=== PATIENT | female | born 1960 | race Caucasian/White ===

== ENCOUNTER → 2019-04-01 13:08 | Outpatient (CLI) | payer OTHER, SELFPAY ==
--- NOTE | ~2019-04-01 | XR_ITS ---
EXAMINATION: XR chest 2V EXAM DATE: 04/01/2019 13:21 INDICATION: Cough. TECHNIQUE: Frontal and lateral projections of the chest obtained and reviewed. There is no prior aaron dy for comparison. FINDINGS: There is left clavicular plate with supporting screws. The lungs are clear. There are no pleural effusions. The cardiomediastinal silhouette is within normal limits. There is no pneumothor ax suspected. The bones and soft tissues are unremarkable. IMPRESSION: No acute cardiopulmonary findings. Reviewed, dictated and finalized at location B. TOR DRIVER TEAMSTER
== END ==
PROVIDERS: PCP Internal Medicine; Visit Provider Internal Medicine
DX: R05 Cough (principal)
CPT/HCPCS: 71046

== ENCOUNTER → 2021-01-24 14:22 | Outpatient (CLI) | payer BC, SELFPAY ==
--- NOTE | ~2021-01-24 | MM_ITS ---
EXAMINATION: MM screening [facility] BI w kasie HISTORY: Screening TECHNIQUE: Craniocaudal and mediolateral oblique 3-D tomosynthesis images were obtained and synthetic 2-D images were generated. CAD analysis was submitted and interpreted. COMPARISON: Comparison to multiple prior studies sequentially, with oldest reviewed study dated 04/2012. BREAST PARENCHYMAL COMPOSITION: Breast composed of scattered areas of fibroglandular density. FINDINGS: There is no evidence of suspicious mass, calcification, or architectural distortion to sugg est malignancy in either breast. There has been no suspicious interval change. IMPRESSION: 1. No mammographic evidence of malignancy. 2. Recommend routine screening mammography in one year. BI-RADS Category 1: Negative Reviewed, dictated and finalized at location A.
== END ==
PROVIDERS: PCP Internal Medicine; Visit Provider Internal Medicine
DX: Z12.31 Encounter for screening mammogram for malignant neoplasm of breast (principal)
CPT/HCPCS: 77063; 77067

== ENCOUNTER 2021-02-21 15:13 | Outpatient (CLI) | payer BC, SELFPAY ==
[2021-02-21 16:46] LABS: SARS-CoV-2 RNA PCR Positive (Negative)
== END 2021-02-21 15:14 | disposition home or self-care (01) ==
LOC: CHSLAB 15:14
PROVIDERS: PCP Internal Medicine; Visit Provider Internal Medicine
DX: R68.89 Other general symptoms and signs (principal); U07.1 COVID-19
CPT/HCPCS: C9803; U0003; U0005

== ENCOUNTER 2022-04-18 10:29 | Outpatient (CLI) | payer BC, SELFPAY ==
[2022-04-18 19:52] LABS: Alanine Aminotransferase 20 U/L (6-35); Albumin Level 4.2 g/dL (3.5-5.1); Alkaline Phosphatase 106 U/L (38-126); Anion Gap 5 mmol/L (8-16); Aspartate Amino Transferase 29 U/L (14-36); Bilirubin,Total 1.4 mg/dL (0.2-1.3); Blood Urea Nitrogen 11 mg/dL (7-17); Calcium 8.6 mg/dL (8.4-10.2); Carbon Dioxide 31 mmol/L (22-30); Chloride 101 mmol/L (98-107); Cholesterol 158 mg/dL (0-200); Estimated Glomerular Filt Rate > 60; Glucose 120 mg/dL (65-110); HDL Direct 43 mg/dL; Potassium 4.5 mmol/L (3.4-5.0); Sodium 137 mmol/L (137-145); Triglycerides 177 mg/dL (<150)
[2022-04-18 20:03] LABS: LDL Cholesterol Direct 74 mg/dL
[2022-04-18 20:16] LABS: Creatinine Urine 247.7 mg/dL
[2022-04-18 20:20] LABS: MALB Creatinine Ratio 4.4 mg/g (0-30)
== END 2022-04-18 10:30 | disposition home or self-care (01) ==
LOC: ANHGOSHLAB 10:30
PROVIDERS: PCP Family Medicine; Visit Provider Family Medicine
DX: Z13.228 Encounter for screening for other metabolic disorders (principal); E78.5 Hyperlipidemia, unspecified; E11.9 Type 2 diabetes mellitus without complications; R53.83 Other fatigue
CPT/HCPCS: 36415; 80053; 80061; 82043; 83036; 84443

== ENCOUNTER → 2023-04-14 13:14 | Outpatient (CLI) | payer BC, SELFPAY ==
--- NOTE | ~2023-04-14 | MM_ITS ---
EXAMINATION: MM screening [facility] BI w kasie HISTORY: Screening mammogram, family history of breast cancer in her mother. TECHNIQUE: Craniocaudal and mediolateral oblique 3-D tomosynthesis images were obtained and synthetic 2-D images were generated. CAD analysis was submitted and interpreted. COMPARISON: 01/24/2021, 11/14/2016, 10/25/2016, 09/21/2012 BREAST PARENCHYMAL COMPOSITION: There are scattered areas of fibroglandular density. FINDINGS: Small, stable bilateral breast masses in the outer breasts are considered benign given the lack of interval change. No suspicious mass, calcification, or architectural distortion are identifie d in either breast to suggest malignancy. There has been no suspicious interval change. IMPRESSION: 1. No mammographic evidence of malignancy. 2. Recommend routine screening mammography in one year. BI-RADS Category 2: Benign finding(s). Reviewed, dictated and finalized at location A. MOLDER
== END ==
PROVIDERS: PCP Family Medicine; Visit Provider Family Medicine
DX: Z12.31 Encounter for screening mammogram for malignant neoplasm of breast (principal)
CPT/HCPCS: 77063; 77067

== ENCOUNTER 2024-01-12 15:46 | Outpatient (CLI) | payer BC, SELFPAY ==
[2024-01-12 18:50] LABS: Basophils Percent Auto 0.3 % (0.2-1.2); Eosinophils Absolute Auto 0.2 K/mm3 (0-0.3); Eosinophils Percent Auto 1.9 % (0-4.4); Hematocrit 41.2 % (37.0-47.0); Hemoglobin 13.1 g/dL (12.0-15.0); Immature Granulocyte Absolute 0.05 K/mm3 (0.00-0.031); Immature Granulocyte Percent A 0.4 % (0-0.5); Immature Platelet Fraction Pct 10.5 % (0.9-11.2); Lymphocytes Absolute Auto 3.48 K/mm3 (0.9-3.2); Lymphocytes Percent Auto 27.6 % (18.3-44.2); Mean Corpuscular HGB Conc 31.8 g/dl (32-36); Mean Corpuscular Hemoglobin 30.2 pg (26-34); Mean Corpuscular Volume 94.9 fl (80-100); Mean Platelet Volume 13.2 fl (7.4-10.4); Monocytes Absolute Auto 0.7 K/mm3 (0.1-0.6); Monocytes Percent Auto 5.5 % (2.6-8.5); Neutrophils Absolute Auto 8.1 K/mm3 (1.3-6.7); Neutrophils Percent Auto 64.3 % (45.5-73.1); Platelet Count Result 179 k/mm3 (150-375); Red Blood Count 4.34 M/mm3 (4.2-5.4); Red Cell Distribution Width 13.9 % (11.5-14.5); White Blood Count 12.6 K/mm3 (4.5-10.0)
[2024-01-12 19:08] LABS: D Dimer 3.07 ug/mL (<0.48)
[2024-01-12 19:22] LABS: Alanine Aminotransferase 21 U/L (6-35); Albumin Level 4.3 g/dL (3.5-5.1); Alkaline Phosphatase 97 U/L (38-126); Anion Gap 9 mmol/L (4-12); Aspartate Amino Transferase 27 U/L (14-36); Bilirubin,Total 1.5 mg/dL (0.2-1.3); Blood Urea Nitrogen 14 mg/dL (7-17); Calcium 9.1 mg/dL (8.4-10.2); Carbon Dioxide 27 mmol/L (22-30); Chloride 103 mmol/L (98-107); Cholesterol 183 mg/dL (0-200); Estimated Glomerular Filt Rate > 60; Glucose 141 mg/dL (65-110); HDL Direct 47 mg/dL; Potassium 4.2 mmol/L (3.4-5.0); Sodium 139 mmol/L (137-145); Triglycerides 183 mg/dL (<150); Uric Acid 3.5 mg/dL (2.5-7.5)
[2024-01-12 19:29] LABS: Creatinine Urine 135.5 mg/dL
[2024-01-12 19:32] LABS: Hemoglobin A1C 8.7 % (<5.7)
[2024-01-12 19:34] LABS: MALB Creatinine Ratio 5.2 mg/g (0-30); Microalbumin Urine Random 7.1 mg/L (0-16.7)
[2024-01-12 19:42] LABS: LDL Cholesterol Direct 97 mg/dL
== END 2024-01-12 15:47 | disposition home or self-care (01) ==
LOC: ANHGOSHLAB 15:47
PROVIDERS: PCP Family Medicine; Visit Provider Family Medicine
DX: E11.9 Type 2 diabetes mellitus without complications (principal); Z13.228 Encounter for screening for other metabolic disorders; E78.5 Hyperlipidemia, unspecified; M10.9 Gout, unspecified; R53.83 Other fatigue; Z13.29 Encounter for screening for other suspected endocrine disorder; R06.00 Dyspnea, unspecified
CPT/HCPCS: 36415; 80053; 80061; 82043; 83036; 84443; 84550; 85025; 85055; 85380

== ENCOUNTER 2024-01-12 16:07 | Outpatient (CLI) | payer BC, SELFPAY ==
--- NOTE | ~2024-01-12 | XR_ITS ---
CHEST RADIOGRAPH, PA AND LATERAL CLINICAL HISTORY: sob cough for 4 months . COMPARISON: 04/01/2019 TECHNIQUE: PA and lateral views of the chest. FINDINGS The cardiomediastinal silhouette is unremarkable. The lungs are clear. Fixation hardware within the left clavicle. Remaining visualized osseous structures and soft tissues are otherwise unremarkable. IMPRESSION: No focal infiltrate or effusion. Reviewed, dictated and finalized at location A.
== END 2024-01-12 16:08 | disposition home or self-care (01) ==
LOC: GOSHIMG 16:08
PROVIDERS: PCP Family Medicine; Visit Provider Family Medicine
DX: R06.02 Shortness of breath (principal); R05.9 Cough, unspecified
CPT/HCPCS: 71046

== ENCOUNTER 2024-01-15 07:41 | Outpatient (CLI) | payer BC, SELFPAY ==
--- NOTE | ~2024-01-15 | CT_ITS ---
EXAMINATION: CTA chest PE protocol DATE: 01/15/2024 08:12 CDT INDICATION: Shortness of breath TECHNIQUE: Computed tomographic angiography (CTA) of the chest was performed with 100 mL Omnipaque-35 0 intravenous contrast. The dose-length product was 947.79 mGy-cm. Maximum intensity projection 3D-re constructions of the aorta and other arteries were constructed by the technologist on a separate work station. Automated exposure control and iterative reconstruction technique were employed. COMPARISON: Chest dated 01/12/2024 FINDINGS: Study is technically adequate without evidence for pulmonary embolism. No evidence for aort ic aneurysm or dissection. Small hiatal hernia. Enlarged right thyroid gland. No discrete mass. No th oracic lymphadenopathy. Upper abdomen is unremarkable. 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 Dependent at electasis. Elevated right diaphragm. There is scoliosis. No suspicious pulmonary nodules or masses. N o endobronchial lesions. Moderate thoracic spondylosis. IMPRESSION: 1. No acute cardiopulmonary disease. No evidence for pulmonary embolism. Reviewed, dictated and finalized at location B.
== END 2024-01-15 07:42 | disposition home or self-care (01) ==
PROVIDERS: PCP Family Medicine; Visit Provider Family Medicine
DX: R06.02 Shortness of breath (principal)
CPT/HCPCS: 71275; Q9967

== ENCOUNTER 2024-01-19 10:33 | Outpatient (CLI) | payer BC, SELFPAY ==
--- NOTE | ~2024-01-19 | US_ITS ---
EXAMINATION: US thyroid DATE: 01/19/2024 10:56 INDICATION: Disorder of thyroid TECHNIQUE: Multiple ultrasound images of the thyroid were obtained. COMPARISON: None. FINDINGS: The right thyroid lobe measures 7.0 x 2.8 x 4.6 cm. The left thyroid lobe measures 3.7 x 1.6 x 1.4 c m. 1.8 cm wider than tall solid isoechoic nodule with smooth and ill-defined margins and without ech ogenic foci (TI-RADS 3, mildly suspicious , FNA if >=2.5 cm, annual followup is >=1.5 cm) in the medi al inferior right thyroid lobe. There is a second similar-appearing 2.8 cm TI-RADS 3 nodule more late rally in the mid to inferior right thyroid. There is a 2.0 cm TI-RADS 3 nodule with similar imaging f eatures in the left thyroid lobe. There are couple subcentimeter wider than tall solid hypoechoic nod ule with ill-defined margins and without echogenic foci (TI-RADS 4, moderately suspicious , FNA if >= 1.5 cm, annual followup is >=1 cm) in the left thyroid lobe measuring 6 mm and 4 mm in maximal diamet ers. 2.1 cm predominantly isoechoic solid TI-RADS 3 nodule with small anechoic cystic regions, smooth and ill-defined margins and without echogenic foci at the thyroid isthmus. IMPRESSION: 1. Multinodular goiter. Recommend ultrasound-guided fine-needle aspiration of the largest 2.8 cm TI R ADS 3 right thyroid nodule. Reviewed, dictated and finalized at location A. IMPRESSION: 1. Multinodular goiter. Recommend ultrasound-guided fine-needle aspiration of t he largest 2.8 cm TI RADS 3 right thyroid nodule.
== END 2024-01-19 10:34 | disposition home or self-care (01) ==
LOC: MICIMG 10:33
PROVIDERS: PCP Family Medicine; Visit Provider Family Medicine
DX: E04.2 Nontoxic multinodular goiter (principal); E07.9 Disorder of thyroid, unspecified
CPT/HCPCS: 76536

== ENCOUNTER 2024-02-26 12:13 | Outpatient (CLI) | payer BC, SELFPAY ==
--- NOTE | ~2024-02-26 | US_ITS ---
EXAMINATION: US FNA w image guidance DATE: 02/26/2024 13:48 INDICATION: Nontoxic single thyroid nodule. TECHNIQUE: The procedure and its benefits and risks were discussed with the patient. Risks specifically discusse d included bleeding. The patient verbalized understanding of the risks and agreed to proceed. The nec k was prepped and draped in the usual sterile manner. 1% lidocaine was used for local anesthesia. 7 passes were made with a 25G needle into the lesion under ultrasound guidance. There were no immedia te complications. FINDINGS: Grayscale ultrasound images demonstrate needles advanced into a 2.8 cm nodule in right thyroid lobe f or biopsy. IMPRESSION: 1. Ultrasound-guided fine needle aspiration of a right thyroid nodule. Reviewed, dictated and finalized at location A. T SPRAYER
== END 2024-02-26 12:14 | disposition home or self-care (01) ==
PROVIDERS: PCP Family Medicine; Visit Provider Family Medicine
DX: D44.0 Neoplasm of uncertain behavior of thyroid gland (principal)
CPT/HCPCS: 10005; 88172; 88173; 88305

== ENCOUNTER 2024-06-15 13:57 | Outpatient (CLI) | payer BC, SELFPAY ==
--- NOTE | ~2024-06-15 | MM_ITS ---
EXAMINATION: MM screening [facility] BI w kasie HISTORY: Screening TECHNIQUE: Craniocaudal and mediolateral oblique 3-D tomosynthesis images were obtained and synthetic 2-D images were generated. CAD analysis was submitted and interpreted. COMPARISON: 04/14/2023 and dating back to 10/25/2016 BREAST PARENCHYMAL COMPOSITION: There are scattered areas of fibroglandular density. FINDINGS: Punctate calcifications detected bilaterally, stable and benign in appearance, dermal in or igin. Stable parenchymal pattern without suspicious microcalcifications, architectural distortion, discrete masses or significant asymmetry. IMPRESSION: 1. No mammographic evidence of malignancy. 2. Recommend routine screening mammography in one year. BI-RADS Category 2: Benign finding(s). Reviewed, dictated and finalized at location A.
== END 2024-06-15 13:58 | disposition home or self-care (01) ==
PROVIDERS: PCP Family Medicine; Visit Provider Family Medicine
DX: Z12.31 Encounter for screening mammogram for malignant neoplasm of breast (principal)
CPT/HCPCS: 77063; 77067

== ENCOUNTER 2024-10-05 10:35 | Outpatient (CLI) | payer MEDICARE, SELFPAY ==
--- NOTE | ~2024-10-05 | US_ITS ---
Thyroid ultrasound. Clinical History: Thyroid nodule COMPARISON: 01/19/2024 Findings: Real-time sonography of the thyroid gland was performed. The right lobe measures 7.9 x 5.0 x 5.7 cm. The left lobe measures 5.3 x 1.7 x 1.4 cm. The isthmus is 7 mm in AP diameter. There is a 2.1 x 1.3 x 1.8 cm probably solid isoechoic nodule in the isthmus with small cystic compon ents. There is a 2.8 x 1.5 x 2.2 cm mildly hypoechoic solid nodule at the right midpole anteriorly. There i s a 2.8 x 2.7 x 2.8 cm heterogeneously hypoechoic nodule at the posterior right midpole. There is a 1.7 x 1.6 x 1.4 cm peripherally solid nodule at the left midpole with small cystic compone nts. Impression: Bilateral thyroid nodules, which are overall probably similar to prior exam given differences in imag ing technique.. Reviewed, dictated and finalized at location . Impression: Bilateral thyroid nodules, which are overall probably similar to prior exam giv en differences in imaging technique..
== END 2024-10-05 10:36 | disposition home or self-care (01) ==
LOC: MICIMG 10:37
PROVIDERS: PCP Family Medicine; Visit Provider Family Medicine
DX: E04.2 Nontoxic multinodular goiter (principal)
CPT/HCPCS: 76536

== ENCOUNTER 2024-10-11 14:14 | Outpatient (CLI) | payer MEDICARE, SELFPAY ==
--- NOTE | ~2024-10-11 | XR_ITS ---
XR abdomen/kub 1V 10/11/2024 14:43 INDICATION: Dysuria. Hematuria. Bilateral flank pain. TECHNIQUE: KUB COMPARISON: None FINDINGS: Bowel gas pattern is normal. There is no evidence of free air, mass, organomegaly, ascites or obstruction. No abnormal calculi are seen. The bones appear intact. IMPRESSION: 1: No acute abdominal abnormality identified. Reviewed, dictated and finalized at location A.
== END 2024-10-11 14:15 | disposition home or self-care (01) ==
LOC: GOSHIMG 14:15
PROVIDERS: PCP Family Medicine; Visit Provider Family Medicine
DX: R30.0 Dysuria (principal); N20.0 Calculus of kidney
CPT/HCPCS: 74018

== ENCOUNTER 2024-10-11 14:46 | Outpatient (NON) | payer MEDICARE, SELFPAY | END 2024-10-11 14:47 | disposition home or self-care (01) | LOC: ANHGOSHLAB 14:47 | PROVIDERS: PCP Family Medicine; Visit Provider Family Medicine | DX: R30.0 Dysuria (principal) | CPT/HCPCS: 87086 ==

== ENCOUNTER 2024-12-20 11:22 | Outpatient (CLI) | payer MEDICARE, SELFPAY ==
[2024-12-20 13:06] LABS: Hematocrit 42.3 % (37.0-47.0); Hemoglobin 13.3 g/dL (12.0-15.0); Immature Platelet Fraction Pct 10.5 % (0.9-11.2); Mean Corpuscular HGB Conc 31.4 g/dl (32-36); Mean Corpuscular Hemoglobin 29.3 pg (26-34); Mean Corpuscular Volume 93.2 fl (80-100); Platelet Count Result 186 k/mm3 (150-375); Red Blood Count 4.54 M/mm3 (4.2-5.4); White Blood Count 11.1 K/mm3 (4.5-10.0)
[2024-12-20 13:14] LABS: Alanine Aminotransferase 28 U/L (6-35); Albumin Level 4.3 g/dL (3.5-5.1); Alkaline Phosphatase 104 U/L (38-126); Anion Gap 12 mmol/L (4-12); Aspartate Amino Transferase 41 U/L (14-36); Bilirubin,Total 1.4 mg/dL (0.2-1.3); Blood Urea Nitrogen 15 mg/dL (7-17); Calcium 8.6 mg/dL (8.4-10.2); Carbon Dioxide 22 mmol/L (22-30); Chloride 104 mmol/L (98-107); Cholesterol 197 mg/dL (0-200); Estimated Glomerular Filt Rate > 60; Glucose 192 mg/dL (65-110); HDL Direct 39 mg/dL; Potassium 4.4 mmol/L (3.4-5.0); Sodium 138 mmol/L (137-145); Total Protein 8.1 g/dL (6.3-8.2); Triglycerides 211 mg/dL (<150)
[2024-12-20 13:28] LABS: Free T4 Free Thyroxine 1.35 ng/dL (0.78-2.19)
[2024-12-20 13:37] LABS: MALB Creatinine Ratio 14.6 mg/g (0-30)
[2024-12-20 13:50] LABS: Thyroid Stimulating Hormone 1.020 uIU/mL (0.465-4.680)
[2024-12-20 16:16] LABS: Hemoglobin A1C 8.8 % (<5.7)
== END 2024-12-20 11:23 | disposition home or self-care (01) ==
LOC: ANHGOSHLAB 11:22
PROVIDERS: PCP Family Medicine; Visit Provider Family Medicine
DX: E78.5 Hyperlipidemia, unspecified (principal); I10 Essential (primary) hypertension; E11.9 Type 2 diabetes mellitus without complications; E04.1 Nontoxic single thyroid nodule; E66.01 Morbid (severe) obesity due to excess calories
CPT/HCPCS: 36415; 80053; 80061; 82043; 83036; 84439; 84443; 85027; 85055